=== PATIENT | female | born 1935 | race Asian ===

== ENCOUNTER 2023-09-17 15:13 | Emergency (ER) | payer OTHER, MEDICAID ==
[~2023-09-17] VITALS: Ht 152.4 cm; Wt 54.4 kg
[~2023-09-17 15:13] MED LIST: AMLO5TAB92 PO; ASPI-1393 PO; BENZ1TAB82 PO; LORA-258 PO; METO50TA7 PO; OLAN7.5T3 PO; OLME1TAB20 PO; SIMV-46 PO
[2023-09-17 15:15] VITALS: BP_SYST 157; PULSE 76; RESP 20; TEMP 97; O2SAT 94
[2023-09-17 16:21] LABS: BASOPHILS % (AUTO) 0.6 % (0.0-2.0); EOSINOPHILS # (AUTO) 0.1 K/uL (0.0-0.4); EOSINOPHILS % (AUTO) 2.4 % (0.0-4.0); HEMATOCRIT 35.4 % (36-48); HEMOGLOBIN 12.1 g/dL (12.0-16.0); LYMPHOCYTES # (AUTO) 1.4 K/uL (1.0-5.5); LYMPHOCYTES % (AUTO) 24.4 % (20.5-51.5); MEAN CORPUSCULAR HEMOGLOBIN 30 pg (27-31); MEAN CORPUSCULAR HGB CONC 34 % (32-36); MEAN CORPUSCULAR VOLUME 88 fL (79.0-98.0); MONOCYTES # (AUTO) 0.5 K/uL (0.0-1.0); MONOCYTES % (AUTO) 7.9 % (1.7-9.3); NEUTROPHILS # (AUTO) 3.8 K/uL (1.8-7.7); NEUTROPHILS % (AUTO) 64.7 % (40.0-70.0); PLATELET COUNT (AUTO) 232 K/uL (130-430); RED BLOOD CELL COUNT(AUTO) 4.01 MIL/uL (4.2-6.2); RED CELL DISTRIBUTION WIDTH 13.5 % (9.0-15.0); WHITE BLOOD COUNT (AUTO) 5.8 K/uL (4.8-10.8)
[2023-09-17 16:32] LABS: PROTHROMBIN TIME 10.3 SECS (9.5-12.5)
[2023-09-17 16:43] LABS: ANION GAP 7 (5-15); CALCIUM 9.2 mg/dL (8.4-11.0); CARBON DIOXIDE 32 mmol/L (23-29); CHLORIDE 103 mmol/L (98-107); CREATININE 0.98 mg/dL (0.55-1.30); GLUCOSE 119 mg/dL (74-106); POTASSIUM 3.8 mmol/L (3.5-5.1); SODIUM SERUM 142 mmol/L (136-145); UREA NITROGEN, BLOOD 11 mg/dL (8-21)
[2023-09-17 16:48] LABS: ALANINE AMINOTRANSFERASE 30 U/L (12-78); ALBUMIN 3.5 g/dL (3.4-4.8); ASPARTATE AMINOTRANSFERASE 24 U/L (10-37); BILIRUBIN,DIRECT 0.1 mg/dL (0.0-0.3); CREATINE KINASE, TOTAL 156 U/L (26-192); FREE T4 (FREE THYROXINE) 0.8 ng/dL (0.6-1.6); TOTAL BILIRUBIN 0.3 mg/dL (0.0-1.0); TOTAL PROTEIN, SERUM 7.9 g/dL (6.4-8.3)
[2023-09-17 17:14] LABS: ACETONE, SERUM NEGATIVE (NEGATIVE)
[2023-09-17 17:49] LABS: BILIRUBIN,URINE NEGATIVE (NEGATIVE); BLOOD, URINE NEGATIVE (NEGATIVE); CLARITY/URINE CLEAR (CLEAR); COLOR,URINE YELLOW (YELLOW); GLUCOSE,URINE NEGATIVE (NEGATIVE); KETONES,URINE NEGATIVE (NEGATIVE); LEUKOCYTE ESTERASE ,URINE NEGATIVE (NEGATIVE); NITRITE, URINE NEGATIVE (NEGATIVE); PH,URINE 7.5 (5.0-8.0); PROTEIN URINE NEGATIVE (NEGATIVE); UROBILINOGEN,URINE 0.2 (0.2-1.0)
[2023-09-17 19:44] VITALS: BP_SYST 166; PULSE 86; RESP 22; TEMP 98; O2SAT 96
== END 2023-09-17 19:44 | disposition home or self-care (01) ==
LOC: SED 15:13
DX: R53.1 Weakness (principal); I10 Essential (primary) hypertension; I51.7 Cardiomegaly; R27.0 Ataxia, unspecified; Z79.899 Other long term (current) drug therapy
CPT/HCPCS: 36415; 70450-TC; 71045; 76376; 80048; 80076; 81001; 81003; 82009; 82550; 83605; 84439; 84443; 84484; 85025; 85610; 85730; 93005; 99285